=== PATIENT | female | born 1980 | race Caucasian/White ===

== ENCOUNTER → 2020-11-06 | Outpatient (REF) ==
--- NOTE | 2020-11-06 13:03 | Diagnostic Imaging Report ---
INDICATION: Injury to right hand. AP, oblique, and lateral views of the right hand are obtained. No fracture or acute bony abnormality is seen. Joint spaces are unremarkable. IMPRESSION: Negative right hand. Dictated by: Dictated on workstation # [id number]
== END ==
LOC: OCC 12:43
PROVIDERS: ATTEND Nurse Practitioner Family
DX: S69.91XA Unspecified injury of right wrist, hand and finger(s), initial encounter (principal); X58.XXXA Exposure to other specified factors, initial encounter
CPT/HCPCS: 73130